=== PATIENT | female | born 1995 | race Caucasian/White ===

== ENCOUNTER 2021-09-08 14:14 | Emergency (ER) | payer BC ==
[~2021-09-08] VITALS: Ht 154.9 cm; Wt 53.2 kg
[~2021-09-08 14:14] MED LIST: AJOVY225 MG/1.5 SQ; INDERAL 20MG20 MG PO; PROZAC 20MG20 MG PO; PROZAC40 MG PO
[2021-09-08 14:36] VITALS: TEMP 98.2
[2021-09-08 15:30] LABS: COLLECTION METHOD CLEAN CATCH
[2021-09-08 15:34] LABS: BASO % 0.7 % (0.0-2.0); EOS # 0.1 K/mm3 (0.0-0.7); EOS % 1.1 % (0.0-4.0); GRAN % 64.3 % (42.2-75.2); HEMOGLOBIN 13.1 g/dl (12.5-16.0); LYMPH # 1.7 K/mm3 (1.2-3.4); LYMPH % 26.9 % (20.0-51.0); MEAN CELL VOLUME 85 fl (80.0-100.0); MEAN CORPUSCULAR HEMOGLOBIN 29 pg (27-31); MEAN CORPUSCULAR HGB CONC 34 g/dl (33.0-37.0); MEAN PLATELET VOLUME 10.1 fl (7.4-10.4); MONO # 0.4 K/mm3 (0.1-0.6); MONO % 6.7 % (1.7-9.3); PLATELET COUNT 257 K/mm3 (130-400); RED BLOOD COUNT 4.57 M/mm3 (4.10-5.30); REDCELL DISTRIBUTION WIDTH-CV 12.7 % (11.5-14.5)
[2021-09-08 15:40] LABS: MUCOUS Present (NOT PRESENT); PH 5 (5-8); SQUAMOUS EPITHELIAL 0-2 /hpf (0-10); URINE APPEARANCE Hazy (CLEAR/HAZY); URINE BACTERIA None Seen /hpf (NONE SEEN); URINE BLOOD Negative (NEGATIVE); URINE COLOR Yellow (YELLOW); URINE GLUCOSE Negative (NEGATIVE); URINE KETONE Trace (NEGATIVE); URINE NITRATE Negative (NEGATIVE); URINE PROTEIN(semi-quant) Negative (NEGATIVE); URINE RBC 0-2 /hpf (0-2); URINE UROBILINOGEN Negative (NEGATIVE)
[2021-09-08 15:52] LABS: ALBUMIN 4.4 gm/dL (3.5-5.0); CREATININE, serum 0.69 mg/dL (0.57-1.11); MAGNESIUM 1.8 mg/dL (1.6-2.6); POTASSIUM 3.3 mmol/L (3.5-4.5); TOTAL PROTEIN 7.1 gm/dL (6.2-8.1)
[2021-09-08 16:46] VITALS: BP 118/69; PULSE 72
== END 2021-09-08 16:47 | disposition home or self-care (01) ==
LOC: COL.ER 14:14
PROVIDERS: Physician Assistant
DX: R63.0 Anorexia (principal); F41.9 Anxiety disorder, unspecified

== ENCOUNTER 2022-12-02 14:15 | Inpatient (IN) | payer BC ==
[~2022-12-02] VITALS: Ht 154.9 cm; Wt 51.7 kg
[2022-12-02 16:00] VITALS: BP 104/71; PULSE 97; TEMP 97.9
[2022-12-02] MEDS ORDERED: LAMICTAL 100MG100 MG PO (17:12)
[2022-12-02] MEDS ORDERED: CYMBALTA 60MG60 MG PO (17:12)
[2022-12-02 18:53] LABS: BASO % 0.5 % (0.0-2.0); EOS # 0.2 K/mm3 (0.0-0.7); EOS % 3.2 % (0.0-4.0); GRAN # 4.4 K/mm3 (1.4-6.5); HEMATOCRIT 31.4 % (37.0-47.0); HEMOGLOBIN 10.4 g/dl (12.5-16.0); LYMPH # 2.2 K/mm3 (1.2-3.4); LYMPH % 29.1 % (20.0-51.0); MEAN CELL VOLUME 87 fl (80.0-100.0); MEAN CORPUSCULAR HEMOGLOBIN 29 pg (27-31); MEAN CORPUSCULAR HGB CONC 33 g/dl (33.0-37.0); MEAN PLATELET VOLUME 9.5 fl (7.4-10.4); MONO # 0.7 K/mm3 (0.1-0.6); MONO % 8.9 % (1.7-9.3); PLATELET COUNT 317 K/mm3 (130-400); RED BLOOD COUNT 3.62 M/mm3 (4.10-5.30); REDCELL DISTRIBUTION WIDTH-CV 14.4 % (11.5-14.5)
[2022-12-02 19:14] LABS: CALCIUM 8.8 mg/dL (8.4-10.2); CREATININE, serum 0.72 mg/dL (0.57-1.11); MAGNESIUM 1.9 mg/dL (1.6-2.6); POTASSIUM 3.8 mmol/L (3.5-4.5)
--- NOTE | 2022-12-02 19:30 | NUR ---
Patient admitted to unit around 1700. Alert and oriented x4, gait is steady. Patient complains of ongoing abdominal pain and rebound tenderness noted upon assessment. Patient also states she has some edema to ankles, no pitting noted. IV started to LAC by JOVANNA Avery x2 attempts. This nurse attempted x2 unsuccessfully. Patient has fear of needles and increased anxiety with pokes. at bedside at time of admission. Patient reports it has been four days since last BM. Education provided on NG tube. NG tube not placed by this nurse due to shift change. NS running through LAC per orders. Patient currently in bed with call light in reach.
[2022-12-02 19:55] VITALS: BP 113/75; PULSE 110; TEMP 98
--- NOTE | 2022-12-02 20:00 | NUR ---
UPON SHIFT ASSESSMENT, GUME WAS UP IN BED WORKING ON HER LAPTOP. SHE COMPLAINED OF MILD NAUSEA AND BOWEL SOUNDS WERE ABSENT IN ALL BUT THE LLQ. EXPLAINATION FOR ORDERS R/T NG TUBE PLACEMENT GIVEN. GUME EXHIBITED GOOD UNDERSTANDING OF PROCEDURE. VSS WNL. CALL LIGHT WITHIN REACH
[2022-12-02 21:00] VITALS: BP_SYST 107
[2022-12-02 23:02] VITALS: BP 107/80; PULSE 101; TEMP 98
[2022-12-03] VITALS (8 sets, daily range): BP systolic 101–118; BP diastolic 63–85; PULSE 92–101; TEMP 97.5–98
--- NOTE | 2022-12-03 05:47 | NUR ---
PATIENT DID NOT FEEL THE NEED TO PLACE SCDs. SHE IS VERY INDEPENDANT AND IS UP AND WALKING FREQUENTLY.
[2022-12-03 06:02] LABS: BASO % 0.4 % (0.0-2.0); EOS # 0.2 K/mm3 (0.0-0.7); EOS % 2.1 % (0.0-4.0); GRAN # 5.3 K/mm3 (1.4-6.5); GRAN % 68.6 % (42.2-75.2); HEMOGLOBIN 10.6 g/dl (12.5-16.0); LYMPH # 1.6 K/mm3 (1.2-3.4); LYMPH % 20.7 % (20.0-51.0); MEAN CELL VOLUME 86 fl (80.0-100.0); MEAN CORPUSCULAR HEMOGLOBIN 28 pg (27-31); MEAN CORPUSCULAR HGB CONC 33 g/dl (33.0-37.0); MEAN PLATELET VOLUME 9.8 fl (7.4-10.4); MONO # 0.6 K/mm3 (0.1-0.6); MONO % 7.9 % (1.7-9.3); PLATELET COUNT 300 K/mm3 (130-400); RED BLOOD COUNT 3.74 M/mm3 (4.10-5.30); REDCELL DISTRIBUTION WIDTH-CV 14.3 % (11.5-14.5)
[2022-12-03 06:06] LABS: HEMATOCRIT 32.3 % (37.0-47.0)
[2022-12-03 06:11] LABS: CALCIUM 8.3 mg/dL (8.4-10.2); CREATININE, serum 0.65 mg/dL (0.57-1.11); POTASSIUM 3.8 mmol/L (3.5-4.5)
--- NOTE | 2022-12-03 07:23 | NUR ---
GUME SUCCESSFULLY CONSUMED, VIA NG TUBE, BOWEL PREP, BUT GAINED NO INCREASED BOWEL MOTILITY. MILK AND MOLASSESS ENEMA APPEARS TO BE UNEFFECTIVE WELL. CURRENTLY SHE IS SLEEPING AND HER HR IS TACHYCARDIC 97 BPM. OTHER VSS ARE WNL.CALL LIGHT WITHIN REACH.
--- NOTE | 2022-12-03 09:00 | NUR ---
PATIENT RESTING IN BED UPON ENTERING ROOM. MORNING MEIDCATIONS ADMINISTERED. NG TUBE FLUSHED, WORKING WELL. SHIFT ASSESSMENT COMPLETED. REPORTS 5/10 ABDOMINAL PAIN, ABDOMEN IS FLAT AND SOFT WITH ACTIVE BOWEL SOUNDS IN ALL FOUR QUADRANTS. PATIENT REPORTS NASAL IRRITATION WITH NG TUBE AND IS HOPING TO HAVE IT REMOVED SOON. REPORTING A SMALL BOWEL MOVEMENT THIS MORNING BUT DOESN'T FEEL COMPLETELY RELIEVED. CALL LIGHT WITHIN REACH, WILL CONTINUE TO MONITOR.
--- NOTE | 2022-12-03 09:44 | NUR ---
Initial visit; Patient welcomed Hospital Supervisor who introduced herself and offered patient a card that explains what Hospital Supervisor's can do here at our hospital for patients. Rosemary did not appear to be receptive and thanked Hospital Supervisor for stopping.
--- NOTE | 2022-12-03 10:37 | NUR ---
print room worker met with patient to discuss discharge planning. Patient confirmed she lives in [place] with her , Pedro, (P#: [phone]). Patient's primary care physician is Dr. Soni and preferred pharmacy is [facility]. Patient denied any issues with affording her medications. Patient does not have a DPOA-HC and does not wish to complete one during her hospital stay. Patient does not use any DME and was independent with all ADLS. Patient reports she would like to go home at time of discharge. No further concerns at this time. DIscharge Plan: Home
[2022-12-03] MEDS ORDERED: PRILOSEC 20MG20 MG PO (10:46)
[2022-12-03] MEDS ORDERED: SEROQUEL 2525 MG/TAB PO (10:47)
--- NOTE | 2022-12-03 17:05 | NUR ---
DISCHARGE INSTRUCTIONS REVIEWED, SPOUSE AT BEDSIDE, ALL QUESTIONS ANSWERED. IV DISCONTINUED. TELEMETRY DISCONTINUED. NG TUBE DISCONTINUED. PATIENT ESCORTED OUT OF FACILITY BY [facility]IA [facility] STAFF.
== END 2022-12-03 17:08 | disposition home or self-care (01) | DRG 392 ==
LOC: MEDICAL 14:15
PROVIDERS: ADMIT Hospitalist
DX: K59.00 Constipation, unspecified (principal); F41.9 Anxiety disorder, unspecified; G43.909 Migraine, unspecified, not intractable, without status migrainosus
CPT/HCPCS: C9113; J2405; J7030